=== PATIENT | male | born 1970 | race Asian ===

== ENCOUNTER 2019-01-08 05:01 | Day surgery (SDC) ==
[2019-01-08] MEDS ORDERED: MIDAZOLAM HCL 2 MG/2ML VIAL ONE (06:30)
[2019-01-08] MEDS ORDERED: ROCURONIUM BROMIDE 50 MG/5 ML ONE (06:31)
[2019-01-08] MEDS ORDERED: FENTANYL PF 100MCG/2ML AMPUL ONE (06:31)
[2019-01-08] MEDS ORDERED: KETOROLAC TROMETHAMINE INJ 30 MG/ML VIAL ONE (06:41)
[2019-01-08] MEDS ORDERED: MORPHINE SULFATE INJ 4 MG/ML DISP.SYRIN ONE (06:41)
[2019-01-08] MEDS ORDERED: BUPIVACAINE MPF W/EPI 0.25% 30 ML VIAL ONE (06:42)
[2019-01-08] MEDS ORDERED: BUPIVACAINE MPF 0.5% W/EPI INJ 30 ML VIAL ONE (08:02)
== END 2019-01-08 09:24 | disposition home or self-care (01) ==
LOC: DS 05:01
PROVIDERS: ATTEND Orthopaedic Surgery
DX: M25.561 Pain in right knee (principal); M65.861 Other synovitis and tenosynovitis, right lower leg; I10 Essential (primary) hypertension; Z82.49 Family history of ischemic heart disease and other diseases of the circulatory system; Z91.81 History of falling; E66.3 Overweight
CPT/HCPCS: 29881; A4217; A6253; J0690; J1100; J1885; J2250; J2405; J2704; J2765; J3010; J3490 ×2; 88304-TC; 88311-TC; J2270